=== PATIENT | male | born 1990 | race Caucasian/White ===

== ENCOUNTER 2016-06-12 18:16 | Emergency (ER) | payer BC ==
[2016-06-12 19:24] VITALS: BP 128/77
--- NOTE | 2016-06-12 20:30 | UC ---
Complaint Male HPI - HPI Summary HPI Summary: pt presents with c/o sudden onset of hematuria and dysuria. Pt was attempting to collect stool sample and "pinched" the end of his penis to keep urine form getting into the stool sample. Pt then voiding after and noticed german blood in urine and dysuria. - History of Current Complaint Chief Complaint: UCGU Stated Complaint: PERSONAL Time Seen by Provider: 06/12/16 20:06 Hx Obtained From: Patient Onset/Duration: Sudden Onset, Resolved Severity Initially: Moderate Severity Currently: None Character: Sharp, Burning Aggravating Factor(s): Voiding Associated Signs And Symptoms: Positive: Hematuria, Dysuria - Allergies/Home Medications Allergies/Adverse Reactions: Allergies Allergy/AdvReac Type Severity Reaction Status Date / Time No Known Allergies Allergy Verified 06/12/16 19:23 Home Medications: Home Medications Amphetamine/Dextroamph ER(NF) [Adderal XR (NF)] 25 mg PO DAILY 06/12/16 [ History Confirmed 06/12/16] Antidepressant/Antianxiety 1 tab PO DAILY 06/12/16 [History Confirmed 06/12/16] PMH/Surg Hx/FS Hx/Imm Hx Previously Healthy: Yes - Surgical History Surgical History: Yes Surgery Procedure, Year, and Place: testicular intusion - Family History Known Family History: Positive: Other - postive [facility] for URI - Social History Alcohol Use: Rare Substance Use Type: None Smoking Status (MU): Never Smoked Tobacco Review of Systems Constitutional: Negative Skin: Negative Eyes: Negative ENT: Negative Respiratory: Negative Cardiovascular: Negative Gastrointestinal: Negative Genitourinary: Dysuria, Hematuria Motor: Negative Neurovascular: Negative Musculoskeletal: Negative Neurological: Negative Psychological: Negative All Other Systems Reviewed And Are Negative: Yes Physical Exam Triage Information Reviewed: Yes Appearance: Well-Appearing Vital Signs: Initial Vital Signs Temp 98.1 F 06/12/16 19:15 Pulse 85 06/12/16 19:15 Resp 16 06/12/16 19:15 BP 128/77 06/12/16 19:15 Pulse Ox 98 06/12/16 19:15 Vital Signs Reviewed: Yes Neck exam: Normal Respiratory Exam: Normal Cardiovascular Exam: Normal Abdominal Exam: Normal Abdomen Description: Positive: Nontender Bowel Sounds: Positive: Present Musculoskeletal Exam: Normal Neurological Exam: Normal Psychological Exam: Normal Skin Exam: Normal Complaint Male Course/Dx - Course Course Of Treatment: Pt did not want to continue with examinatino and testing. He requrested taht he be released immediately and not have his urine tested as he stated he waited too long and that "this was stupid". I completed as much aof a physical exam as the pt would allow, cancelled the UA and dischargedthe pt at his request. - Differential Dx/Diagnosis Differential Diagnosis/HQI/PQRI: Other - dysuria Provider Diagnoses: dysuria Discharge - Discharge Plan Condition: Stable Disposition: HOME Patient Education Materials: Dysuria (ED) Referrals: Evangelina Gu [Medical Doctor] - As Soon As Possible (Plpease follow up as needed with your pCP or return to clinic. You have requested to discontinue your evaluation and physical exam at todays visit belén we have cancelled all tests that were ordered during your visit. )
== END 2016-06-12 20:29 | disposition home or self-care (01) ==
LOC: UCCORT 18:16
DX: R30.0 Dysuria (principal); R31.9 Hematuria, unspecified
CPT/HCPCS: 99211; G0463

== ENCOUNTER 2016-10-03 18:52 | Emergency (ER) | payer BC ==
[2016-10-03 19:11] VITALS: BP 126/78
--- NOTE | 2016-10-03 19:33 | UC ---
General HPI - HPI Summary HPI Summary: FOUR DAYS OF CONGESTION, SCRATCHY THROAT AND POST NASAL DRIP. THIS MORNING HAD SWELLING AND ITCHING TO LEFT SUPERIOR EYELID. - History of Current Complaint Chief Complaint: Mervin Stated Complaint: EYE ISSUE/SORE THROAT Time Seen by Provider: 10/03/16 19:04 Hx Obtained From: Patient Onset/Duration: Gradual Onset, Lasting Days, Worse Since - TODAY Onset Severity: Mild Current Severity: Mild Associated Signs & Symptoms: Positive: Cough, Fever, Other - LEFT SUPERIOR EYELID SWELLING IRRITATION. Negative: SOB, Wheezing, Weakness - Allergy/Home Medications Allergies/Adverse Reactions: Allergies Allergy/AdvReac Type Severity Reaction Status Date / Time Banana Allergy See Comment Verified 10/03/16 19:11 Home Medications: Home Medications Amphetamine-Dextroamphetamine [Adderall 30 mg-] 1 tab PO DAILY 10/03/16 [ History Confirmed 10/03/16] FLUoxetine CAP* [PROzac CAP*] 10 mg PO DAILY 10/03/16 [History Confirmed ] lamoTRIgine TAB(*) [LaMICtal TAB(*)] 100 mg PO BEDTIME 10/03/16 [History Confirmed 10/03/16] PMH/Surg Hx/FS Hx/Imm Hx Previously Healthy: Yes - Surgical History Surgical History: Yes Surgery Procedure, Year, and Place: testicular intusion - Family History Known Family History: Positive: Other - postive [facility] for URI - Social History Occupation: Employed Full-time Lives: With Family Alcohol Use: Rare Substance Use Type: None Smoking Status (MU): Never Smoked Tobacco Review of Systems Constitutional: Fever Skin: Negative Eyes: Other - LEFT SUPERIOR EYELID SWELLING TENDER, REDNESS ENT: Sore Throat, Nasal Discharge, Sinus Congestion Respiratory: Negative Cardiovascular: Negative Gastrointestinal: Negative Genitourinary: Negative Motor: Negative Neurovascular: Negative Musculoskeletal: Negative Neurological: Negative Psychological: Negative All Other Systems Reviewed And Are Negative: Yes Physical Exam Triage Information Reviewed: Yes Appearance: Well-Appearing, No Pain Distress, Well-Nourished, Thin Vital Signs: Initial Vital Signs Temp 99.0 F 10/03/16 19:07 Pulse 98 10/03/16 19:07 Resp 14 10/03/16 19:07 BP 126/78 10/03/16 19:07 Pulse Ox 97 10/03/16 19:07 Vital Signs Reviewed: Yes Eyes: Positive: Conjunctiva Clear, Other: - LEFT SUPERIOR EYELID STYE NEAR MEDIAL CANTHUS ENT: Positive: Pharyngeal erythema, Nasal congestion, TM dull Dental Exam: Normal Neck exam: Normal Respiratory Exam: Normal Respiratory: Positive: Chest non-tender, Lungs clear, Normal breath sounds, No respiratory distress, No accessory muscle use Cardiovascular Exam: Normal Cardiovascular: Positive: RRR, No Murmur, Pulses Normal Abdominal Exam: Normal Musculoskeletal Exam: Normal Musculoskeletal: Positive: Strength Intact, ROM Intact Neurological Exam: Normal Psychological Exam: Normal Psychological: Positive: Normal Response To Family Skin Exam: Normal Course/Dx - Differential Dx - Multi-Symptom Differential Diagnoses: Other - STYE; UPPER RESPIRATORY INFECTION Provider Diagnoses: UPPER RESPIRATORY INFECTION, LEFT SUPERIOR EYELID STYE Discharge - Discharge Plan Condition: Stable Disposition: HOME Prescriptions: Amoxicillin/Clavulanate TAB* [Augmentin TAB 875*] 875 mg PO BID #20 tab Patient Education Materials: Stye (ED), Upper Respiratory Infection (ED) Forms: *Work Release Referrals: AMBROCIO Hale [Primary Care Provider] -
== END 2016-10-03 19:32 | disposition home or self-care (01) ==
LOC: UCCORT 18:52
DX: J06.9 Acute upper respiratory infection, unspecified (principal); H00.014 Hordeolum externum left upper eyelid
CPT/HCPCS: 99211; G0463

== ENCOUNTER 2018-11-27 11:26 | Emergency (ER) | payer BC, OTHER ==
[2018-11-27 12:44] VITALS: BP 123/84
--- NOTE | 2018-11-27 12:57 | UC ---
Skin Complaint HPI - HPI Summary HPI Summary: abscess on chin x 2 days the area is red , swollen , tender, + drainage, no fever, no chills - History of Current Complaint Chief Complaint: UCSkin Time Seen by Provider: 11/27/18 12:48 Stated Complaint: CHIN SKIN COMPLAINT Hx Obtained From: Patient Onset/Duration: Gradual Onset, Lasting Days - 2, Still Present Timing: Constant Onset Severity: Moderate Current Severity: Moderate Pain Intensity: 8 Location: Face - chin Character: Swelling, Pain, Redness, Raised, Painful Aggravating Factor(s): Touch Alleviating Factor(s): Nothing Associated Signs & Symptoms: Positive: Tenderness. Negative: Fever, Chills - Allergy/Home Medications Allergies/Adverse Reactions: Allergies Allergy/AdvReac Type Severity Reaction Status Date / Time banana Allergy See Comment Verified 11/27/18 12:39 PMH/Surg Hx/FS Hx/Imm Hx Previously Healthy: Yes - Surgical History Surgical History: Yes Surgery Procedure, Year, and Place: testicular intusion - Family History Known Family History: Positive: Other - postive [facility] for URI Negative: Diabetes - Social History Alcohol Use: Rare Substance Use Type: None Smoking Status (MU): Never Smoked Tobacco - Immunization History Most Recent Influenza Vaccination: none 2016 Most Recent Tetanus Shot: w/in last 8-10 yrs Review of Systems All Other Systems Reviewed And Are Negative: Yes Constitutional: Positive: Negative Eyes: Positive: Negative ENT: Positive: Negative Is Patient Immunocompromised?: No Physical Exam Triage Information Reviewed: Yes Appearance: Well-Appearing, No Pain Distress, Well-Nourished Vital Signs: Initial Vital Signs Temp 97.9 F 11/27/18 12:42 Pulse 97 11/27/18 12:42 Resp 16 11/27/18 12:42 BP 123/84 11/27/18 12:42 Pulse Ox 100 11/27/18 12:42 Vital Signs Reviewed: Yes Eye Exam: Normal Eyes: Positive: Conjunctiva Clear ENT: Positive: Normal ENT inspection, Hearing grossly normal, Pharynx normal Neck: Positive: Supple, Nontender, No Lymphadenopathy Respiratory: Positive: Chest non-tender, Lungs clear, Normal breath sounds Cardiovascular: Positive: RRR, No Murmur, Pulses Normal Skin: Positive: Other - abscess chin , + erythema, swelling, tender to touch Course/Dx - Diagnoses Provider Diagnosis: Abscess or cellulitis of chin Discharge ED - Sign-Out/Discharge Documenting (check all that apply): Patient Departure All imaging exams completed and their final reports reviewed: No Studies - Discharge Plan Condition: Stable Disposition: HOME Prescriptions: Cephalexin CAP* [Keflex CAP*] 500 mg PO TID #30 cap Patient Education Materials: Abscess (ED) Forms: *Work Release Referrals: Coby Zarate MD [Primary Care Provider] - 7 Days - Billing Disposition and Condition Condition: STABLE Disposition: Home
== END 2018-11-27 13:04 | disposition home or self-care (01) ==
LOC: UCCORT 11:26
DX: L02.01 Cutaneous abscess of face (principal); Z91.018 Allergy to other foods
CPT/HCPCS: 99212; G0463

== ENCOUNTER 2019-02-05 08:53 | Emergency (ER) | payer OTHER ==
[2019-02-05 09:02] VITALS: BP 122/82
--- NOTE | 2019-02-05 09:32 | UC ---
UC General HPI - HPI Summary HPI Summary: Started with cough, congestion yesterday. Took pain relief and sinus medication so unsure if he had a fever but had chills. Has significant sinus pressure. +Body aches. Feels like a head cold. +nausea. No vomiting or diarrhea. Adequate PO. Meds: reviewed. Nonsmoker Concerned about going to work - works at [employer] - History of Current Complaint Chief Complaint: UCGeneralIllness Stated Complaint: SINUS COMPLAINT Time Seen by Provider: 02/05/19 09:10 Pain Intensity: 5 - Allergy/Home Medications Allergies/Adverse Reactions: Allergies Allergy/AdvReac Type Severity Reaction Status Date / Time banana Allergy See Comment Verified 02/05/19 08:59 Home Medications: Home Medications Phenylephrine/Acetaminophn/Cpm [Nighttime Sinus Congestio] 1 tab PO ONCE [History Confirmed 02/05/19] PMH/Surg Hx/FS Hx/Imm Hx Previously Healthy: Yes - Surgical History Surgical History: Yes Surgery Procedure, Year, and Place: testicular intusion - Family History Known Family History: Positive: Other - postive [facility] for URI Negative: Diabetes - Social History Alcohol Use: None Substance Use Type: None Smoking Status (MU): Never Smoked Tobacco - Immunization History Most Recent Influenza Vaccination: none 2016 Most Recent Tetanus Shot: w/in last 8-10 yrs Review of Systems All Other Systems Reviewed And Are Negative: Yes Constitutional: Positive: Chills ENT: Positive: Sore Throat, Sinus Congestion, Sinus Pain/Tenderness Respiratory: Positive: Cough Gastrointestinal: Positive: Nausea Physical Exam Triage Information Reviewed: Yes Appearance: Other: - mildly ill appearing Vital Signs: Initial Vital Signs Temp 98.7 F 02/05/19 09:00 Pulse 92 02/05/19 09:00 Resp 16 02/05/19 09:00 BP 122/82 02/05/19 09:00 Pulse Ox 100 02/05/19 09:00 Vital Signs Reviewed: Yes ENT: Positive: Pharyngeal erythema, Nasal congestion, Sinus tenderness, Other - mild erythema on right TM Neck: Positive: Supple, Nontender Respiratory: Positive: Lungs clear, Normal breath sounds Cardiovascular: Positive: RRR, No Murmur Course/Dx - Course Course Of Treatment: This is a 28 year old with no PMHx with two days of URI illness Rapid flu: Negative Nontoxic appearing Recommend rest, fluids Continue ibuprofen as needed for pain/fever as directed Can use sudafed or dayquil for symptoms Can also try afrin for 2-3 days If symptoms persist or worsen, recommend follow up with PCP or return to urgent care - Diagnoses Provider Diagnosis: Viral syndrome Discharge ED - Sign-Out/Discharge Documenting (check all that apply): Patient Departure All imaging exams completed and their final reports reviewed: No Studies - Discharge Plan Condition: Fair Disposition: HOME Patient Education Materials: Viral Syndrome (ED) Forms: *Work Release Referrals: Coby Zarate MD [Primary Care Provider] - Additional Instructions: Your flu test was negative Recommend rest, fluids Continue ibuprofen as needed for pain/fever as directed Can use sudafed or dayquil for symptoms Can also try afrin for 2-3 days If symptoms persist or worsen, recommend follow up with PCP or return to urgent care - Billing Disposition and Condition Condition: FAIR Disposition: Home
[2019-02-05 09:40] LABS: Influenza A Molecular NEGATIVE (Negative); Influenza B Molecular NEGATIVE (Negative)
== END 2019-02-05 09:54 | disposition home or self-care (01) ==
LOC: UCCORT 08:53
DX: B34.9 Viral infection, unspecified (principal); J02.9 Acute pharyngitis, unspecified; R05 Cough; Z91.018 Allergy to other foods
CPT/HCPCS: 99211; G0463